=== PATIENT | male | born 1965 | race Caucasian/White ===

== ENCOUNTER 2020-12-28 15:36 | Emergency (ER) | payer MEDICAID ==
[~2020-12-28] VITALS: Ht 180.3 cm; Wt 99.3 kg
[2020-12-28] MEDS ORDERED: GABAPENTIN300 MG PO (15:53)
[2020-12-28] MEDS ORDERED: PREDNISONE20 MG PO (17:59)
== END 2020-12-28 18:07 | disposition home or self-care (01) ==
LOC: ED 15:36
DX: L50.0 Allergic urticaria (principal); I10 Essential (primary) hypertension; F17.200 Nicotine dependence, unspecified, uncomplicated
CPT/HCPCS: 99283; J1100